=== PATIENT | male | born 1950 | race Caucasian/White ===

== ENCOUNTER 2017-07-05 13:57 | Inpatient (IN) | payer MEDICARE, OTHER ==
[2017-07-05] VITALS (12 sets, daily range): BP systolic 140–184; BP diastolic 88–115; PULSE 62–79; RESP 16–18; TEMP 97.3–98.2; O2SAT 95–97
[~2017-07-05] VITALS: Ht 175.3 cm; Wt 81.5 kg
[~2017-07-05 13:57] MED LIST: BP PILL; NAPR-571 PO; ORPH100T PO; PERC10TA27 PO
[2017-07-05] MEDS ORDERED: SODIUM CHLORIDE 0.9% FLUSH 10 ML FLUSH IVF PRN (14:15)
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
[2017-07-05] MEDS ORDERED: ASPIRIN 325 MG TAB PO ONE (14:30)
[2017-07-05] MEDS: NITROGLYCERIN 0.4 MG SL 25 TABS/BTL SL SCH ×2 (14:35→14:56)
[2017-07-05 14:56] LABS: AUTOMATED NEUTROPHIL # 3.8 TH/MM3 (1.8-7.7); BASOPHIL % 0.7 % (0.0-2.0); EOSINOPHIL # 0.1 TH/MM3 (0-0.4); EOSINOPHIL % 2.6 % (0.0-4.0); HEMATOCRIT 39.5 % (39.0-51.0); HEMOGLOBIN 13.1 GM/DL (13.0-17.0); LYMPH % 16.6 % (9.0-44.0); LYMPHOCYTE # 0.9 TH/MM3 (1.0-4.8); MEAN CORPUSCULAR HEMOGLOBIN 28.4 PG (27.0-34.0); MEAN PLATELET VOLUME 8.2 FL (7.0-11.0); MONO % 8.7 % (0.0-8.0); MONOCYTE # 0.5 TH/MM3 (0-0.9); NEUT % 71.4 % (16.0-70.0); PLATELET COUNT 145 TH/MM3 (150-450); RED BLOOD COUNT 4.59 MIL/MM3 (4.50-5.90); RED CELL DISTRIBUTION WIDTH 13.3 % (11.6-17.2); WHITE BLOOD COUNT 5.3 TH/MM3 (4.0-11.0)
--- NOTE | 2017-07-05 14:57 | RADRPT ---
EXAM DATE/TIME: 07/05/2017 14:31 [facility] COMPARISON: No previous studies available for comparison. INDICATIONS : Chest pain since yesterday. MEDICAL HISTORY : Hypertension. SURGICAL HISTORY : None. ENCOUNTER: Initial ACUITY: 2 days PAIN SCORE: 5/10 LOCATION: Bilateral chest FINDINGS: A single view of the chest demonstrates the lungs to be symmetrically aerated without evidence of mas s, infiltrate or effusion. The cardiomediastinal contours are unremarkable. Osseous structures are intact. CONCLUSION: No acute disease. Raul Mendoza MD on July 05, 2017 at 14:56 Board Certified Radiologist. This report was verified electronically.
[2017-07-05 15:06] LABS: CHLORIDE 107 MEQ/L (98-107); SODIUM (NA) 141 MEQ/L (136-145)
[2017-07-05 15:09] LABS: CALCIUM 8.5 MG/DL (8.5-10.1)
[2017-07-05 15:10] LABS: BLOOD UREA NITROGEN 26 MG/DL (7-18); GLUCOSE,RANDOM 113 MG/DL (74-106); MAGNESIUM 2.1 MG/DL (1.5-2.5)
[2017-07-05 15:13] LABS: ALT (GPT) 24 U/L (12-78); AST (GOT) 16 U/L (15-37); GLOMERULAR FILTRATION RATE 55 ML/MIN (>89)
[2017-07-05 15:14] LABS: TOTAL BILIRUBIN ADULT 0.4 MG/DL (0.2-1.0); TOTAL PROTEIN 7.6 GM/DL (6.4-8.2)
[2017-07-05 15:16] LABS: ALKALINE PHOSPHATASE 84 U/L (45-117)
[2017-07-05 15:18] LABS: D-DIMER 0.63 MG/L FEU (0.00-0.50); TROPONIN I LESS THAN 0.02 NG/ML (0.02-0.05)
[2017-07-05] MEDS ORDERED: IOHEXOL 350 MG/ML 10 ML VIAL (for RAD DIAG) IVCONTRAST ONE (16:07)
--- NOTE | 2017-07-05 16:14 | RADRPT ---
EXAM DATE/TIME: 07/05/2017 15:58 [facility] COMPARISON: CHEST SINGLE AP, July 05, 2017, 14:31. INDICATIONS : Chest pain. Evaluate for pulmonary embolism. IV CONTRAST: 65 cc Omnipaque 350 (iohexol) IV RADIATION DOSE: 15.35 CTDIvol (mGy) MEDICAL HISTORY : Hypertension. SURGICAL HISTORY : None. ENCOUNTER: Initial ACUITY: 2 days PAIN SCALE: 6/10 LOCATION: chest TECHNIQUE: Volumetric scanning of the chest was performed using a pulmonary embolism protocol MIP images were re constructed. Using automated exposure control and adjustment of the mA and/or kV according to patien t size, radiation dose was kept as low as reasonably achievable to obtain optimal diagnostic quality images. DICOM format image data is available electronically for review and comparison. Follow-up recommendations for detected pulmonary nodules are based at a minimum on nodule size and pa tient risk factors according to Fleischner Society Guidelines. FINDINGS: PULMONARY ARTERIES: No filling defects are seen in the pulmonary arteries through the segmental level. LUNGS: There is no consolidation or pneumothorax . No concerning pulmonary nodule is visualized. PLEURAE: There is no pleural thickening or pleural effusion. MEDIASTINUM: There is good visualization of the great vessels of the middle mediastinum. No evidence of mediastin al or hilar adenopathy/mass. MUSCULOSKELETAL: Within normal limits for patient age. MISCELLANEOUS: The visualized upper abdominal organs demonstrate no acute abnormality. CONCLUSION: 1. No evidence of pulmonary embolism. 2. The lungs are clear bilaterally. Rusty Zarate MD on July 05, 2017 at 16:12 Board Certified Radiologist. This report was verified electronically.
[2017-07-05] MEDS ORDERED: NITROGLYCERIN 0.4 MG SL 25 TABS/BTL SL PRN (18:00)
[2017-07-05] MEDS ORDERED: TEMAZEPAM 15 MG CAP PO PRN (18:00)
[2017-07-05] MEDS ORDERED: ACETAMINOPHEN 500 MG CPLT PO PRN (18:00)
[2017-07-05] MEDS ORDERED: SODIUM CHLORIDE 0.9% FLUSH 10 ML FLUSH IV FLUSH PRN (18:00)
[2017-07-05] MEDS ORDERED: MORPHINE SULFATE 4 MG/ML INJ IV PUSH PRN (18:00)
[2017-07-05] MEDS ORDERED: ONDANSETRON HCL 4 MG/2 ML VIAL IV PUSH PRN (18:00)
[2017-07-05] MEDS ORDERED: ACETAMINOPHEN/HYDROcodone 325 MG/7.5 MG TAB PO PRN (18:00)
--- NOTE | 2017-07-05 18:31 | HHI.HP ---
[facility] Primary Care Physician Non-Staff Admission Diagnosis chest pain Diagnoses: (1) Nonsustained ventricular tachycardia Diagnosis: Principal (2) Chest pain Diagnosis: Principal Chief Complaint: Chest discomfort Travel History International Travel<30 Days: No Contact w/Intl Traveler <30 Da: No Traveled to Known Affected Are: No History of Present Illness 66-year-old male with known history of hypertension, kidney stones, back pain who presented to hospital because of chest discomfort. Patient states that last evening before he went to bed he had 2 episodes of chest discomfort and then when he got up this morning he has had several more episodes. He states that the pain is located on the right sternal border 4/10 on a pain scale that he describes as a pressure sensation lasting for approximately 30 seconds at a time. It is nonradiating, denies any nausea, vomiting, shortness of breath, dyspnea, lightheadedness, dizziness. He states that the discomfort can happen at rest or during exertion. Patient does have significant family history of early-onset heart disease with losing a brother at age 38 and another brother at 69. Patient was resting comfortably when entering the room initially. During the interview the patient had an episode of nonsustained ventricular tachycardia with 7 beats. During that episode he did experience some tightness in his chest. Patient will need to be admitted to the hospital with cardiology consultation. Review of Systems Cardiovascular: COMPLAINS OF: Chest pain Except as stated in HPI: all other systems reviewed are Neg Past Family Social History Past Medical History Hypertension History kidney stones Back pain Past Surgical History Exploratory laparoscopies Recent lumbar spine surgery 3 months ago Reported Medications Reported Meds & Active Scripts Active Norflex (Orphenadrine Citrate) 100 Mg Theo 100 Mg PO BID Percocet 10/325 (Oxycodone/Acetaminophen) Oxycodone 10/325 Acetaminophen Tab 1 Tab PO Q4HR Reported Naproxen 250 Mg Tab 250 Mg PO Q12H [Bp Pill] DAILY Allergies: Coded Allergies: penicillin G (Unverified Allergy, Mild, 07/05/17) Family History Reviewed and is severely significant for heart disease with one brother at age 38 from heart disease and another at age 69 from heart disease Social History Patient states that he smoked briefly in his teens, he quit 19 years old. He does drink 2-3 alcoholic beverages daily. Denies any illicit drugs Physical Exam Vital Signs Vital Signs Date Time Temp Pulse Resp B/P (MAP) Pulse Ox O2 Delivery O2 Flow Rate FiO2 07/05/17 18:03 67 18 175/105 (128) 97 Room Air 07/05/17 17:57 97 21 07/05/17 15:52 76 17 140/93 (109) 97 Room Air 07/05/17 15:05 95 Room Air 07/05/17 15:05 16 07/05/17 15:03 140/93 (109) 146/88 (107) 07/05/17 15:02 79 140/93 (109) 07/05/17 14:58 16 95 Room Air 07/05/17 14:57 70 162/105 (124) 07/05/17 14:08 98.0 72 18 184/99 (127) 96 Physical Exam GENERAL: Well-developed, well-nourished, in no acute distress. alert and orientated HEENT: Head is normocephalic without any lesions or masses noted. Facial features are symmetric. Eyes: Pupils equal round reactive to light. Extraocular muscles are intact. Conjunctivae were clear. Oropharyngeal: Pharynx without any erythema edema. Tongue is midline without deviation. Buccal mucosa is moist without any masses or lesions NECK: Supple without any masses. Trachea midline no deviation. No JVD, no bruits are appreciated CARDIAC: Regular rhythm, regular rate. S1/S2 are heard. No murmurs gallops or rubs. LUNGS: Clear to auscultation bilaterally. No wheeze, rhonchi or rales. No use of accessory muscles on inspiration or expiration. ABDOMEN: Soft, nontender. Nondistended. Bowel sounds heard in all 4 quadrants. No organomegaly or masses. Negative rebound, negative guarding EXTREMITIES: No edema, pulses are equal bilaterally. No cyanosis or clubbing NEUROLOGY: Mood and affect appear appropriate. Cranial nerves II through XII grossly intact. Muscle strength 5/5 in upper and lower extremities bilaterally. Deep tendon reflexes are 2+ in upper and lower extremities bilaterally. Laboratory Laboratory Tests Test 07/05/17 14:45 White Blood Count 5.3 Red Blood Count 4.59 Hemoglobin 13.1 Hematocrit 39.5 Mean Corpuscular Volume 86.0 Mean Corpuscular Hemoglobin 28.4 Mean Corpuscular Hemoglobin Concent 33.0 Red Cell Distribution Width 13.3 Platelet Count 145 Mean Platelet Volume 8.2 Neutrophils (%) (Auto) 71.4 Lymphocytes (%) (Auto) 16.6 Monocytes (%) (Auto) 8.7 Eosinophils (%) (Auto) 2.6 Basophils (%) (Auto) 0.7 Neutrophils # (Auto) 3.8 Lymphocytes # (Auto) 0.9 Monocytes # (Auto) 0.5 Eosinophils # (Auto) 0.1 Basophils # (Auto) 0.0 CBC Comment DIFF FINAL Differential Comment Prothrombin Time 10.0 Prothromb Time International Ratio 1.0 Activated Partial Thromboplast Time 24.8 D-Dimer Quantitative (PE/DVT) 0.63 Blood Urea Nitrogen 26 Creatinine 1.30 Random Glucose 113 Total Protein 7.6 Albumin 4.0 Calcium Level 8.5 Magnesium Level 2.1 Alkaline Phosphatase 84 Aspartate Amino Transf (AST/SGOT) 16 Alanine Aminotransferase (ALT/SGPT) 24 Total Bilirubin 0.4 Sodium Level 141 Potassium Level 3.9 Chloride Level 107 Carbon Dioxide Level 27.0 Anion Gap 7 Estimat Glomerular Filtration Rate 55 Total Creatine Kinase 173 Creatine Kinase MB 2.0 Troponin I LESS THAN 0.02 Result Diagram: 07/05/17 1445 07/05/17 1445 Imaging Last Impressions Chest X-Ray 07/05/17 1413 Signed Impressions: Service Date/Time: Wednesday, July 05, 2017 14:31 - CONCLUSION: No acute disease. MD Romi Andujari VTE Risk Assessment Caprini VTE Risk Assessment: Mod/High Risk (score >= 2) Caprini Risk Assessment Model Point Value = 1 Point Value = 2 Point Value = 3 Point Value = 5 Age 41-60 Minor surgery BMI > 25 kg/m2 Swollen legs Varicose veins or History of unexplained or recurrent spontaneous Oral contraceptives or hormone replacement Sepsis (< 1 month) Serious lung disease, including pneumonia (< 1 month) Abnormal pulmonary function Acute myocardial infarction Congestive heart failure (< 1 month) History of inflammatory bowel disease Medical patient at bed rest Age 61-74 Arthroscopic surgery Major open surgery (> 45 min) Laparoscopic surgery (> 45 min) Malignancy Confined to bed (> 72 hours) Immobilizing plaster cast Central venous access Age >= 75 History of VTE Family history of VTE Factor V Leiden Prothrombin [id number] Lupus anticoagulant Anticardiolipin antibodies Elevated serum homocysteine Heparin-induced thrombocytopenia Other congenital or acquired thrombophilia Stroke (< 1 month) Elective arthroplasty Hip, pelvis, or leg fracture Acute spinal cord injury (< 1 month) Prophylaxis Regimen Total Risk Factor Score Risk Level Prophylaxis Regimen 0-1 Low Early ambulation 2 Moderate Order ONE of the following: *Sequential Compression Device (SCD) *Heparin 5000 units SQ BID 3-4 Higher Order ONE of the following medications: *Heparin 5000 units SQ TID *Enoxaparin/Lovenox 40 mg SQ daily (WT < 150 kg, CrCl > 30 mL/min) *Enoxaparin/Lovenox 30 mg SQ daily (WT < 150 kg, CrCl > 10-29 mL/min) *Enoxaparin/Lovenox 30 mg SQ BID (WT < 150 kg, CrCl > 30 mL/min) AND/OR *Sequential Compression Device (SCD) 5 or more Highest Order ONE of the following medications: *Heparin 5000 units SQ TID (Preferred with Epidurals) *Enoxaparin/Lovenox 40 mg SQ daily (WT < 150 kg, CrCl > 30 mL/min) *Enoxaparin/Lovenox 30 mg SQ daily (WT < 150 kg, CrCl > 10-29 mL/min) *Enoxaparin/Lovenox 30 mg SQ BID (WT < 150 kg, CrCl > 30 mL/min) AND *Sequential Compression Device (SCD) Assessment and Plan Assessment and Plan Chest pain with nonsustained ventricular tachycardia Patient does have increased risk factors to include age, hypertension, significant early-onset heart disease in the family Thus far cardiac enzymes are negative. We'll continue to trend cardiac enzymes EKG reviewed by myself which did show normal sinus rhythm, however when in the room patient had symptomatic nonsustained ventricular tachycardia of 7 beats Consult cardiology for recommendations, Dr. Fields recommends transferring to [facility] for cardiac catheterization Patient will be started on aspirin, beta orion, statin, Nitropaste, heparin IV Hypertension Resume losartan Hold HCTZ Back pain Pain control DVT prevention Sequential compression devices Patient will be on heparin IV Problem Qualifiers (1) Chest pain: Qualified Codes: R07.9 - Chest pain, unspecified Inocencio Wilkes Jul 05, 2017 18:31
[2017-07-05 18:44] LABS: TROPONIN I LESS THAN 0.02 NG/ML (0.02-0.05)
[2017-07-05] MEDS ORDERED: HEPARIN SODIUM - IV 10,000 UNITS/10 ML VIAL IV PUSH ONE (19:00)
[2017-07-05] MEDS ORDERED: PILL SPLITTER OTHER PRN (19:00)
[2017-07-05] MEDS ORDERED: HEPARIN-D5W 25,000 U/250 ML 250 ML IV SCH (19:00)
[2017-07-05] MEDS: METOPROLOL TARTRATE 25 MG TAB PO SCH (19:31)
[2017-07-05] MEDS: NITROGLYCERIN 2% OINT 1 GM PACKET TOPICAL SCH (19:33)
[2017-07-05] MEDS: SODIUM CHLORIDE 0.9% FLUSH 10 ML FLUSH IV FLUSH SCH (19:34)
[2017-07-05] MEDS ORDERED: ATORVASTATIN 20 MG TAB PO SCH (21:00)
[2017-07-05 22:08] LABS: TROPONIN I LESS THAN 0.02 NG/ML (0.02-0.05)
[2017-07-06] VITALS (14 sets, daily range): BP systolic 118–151; BP diastolic 78–97; PULSE 51–75; RESP 16–20; TEMP 97.8–98.1; O2SAT 94–97
[2017-07-06] MEDS ORDERED: HEPARIN SODIUM - IV 10,000 UNITS/10 ML VIAL IV PUSH PRN ×2 (00:30)
[2017-07-06] MEDS: NITROGLYCERIN 2% OINT 1 GM PACKET TOPICAL SCH ×3 (00:48→13:05)
[2017-07-06 03:35] LABS: CHOLESTEROL/ HDL RATIO 2.73 RATIO
--- NOTE | 2017-07-06 08:31 | MB ---
cc: Jodie Fields MD DATE OF CONSULT: 07/06/2017 HISTORY OF PRESENT ILLNESS: Mr. Burger is a 66-year-old white male with history of hypertension who developed substernal chest discomfort with and without exertion 2 days ago. He describes the pain as a pressure which was of moderate severity. It was in the right parasternal region. There was no radiation of the pain. The patient also had a 7-beat episode of nonsustained ventricular tachycardia. He has a strong family history of heart disease. PAST MEDICAL HISTORY: Positive for hypertension, back pain, nephrolithiasis, history of exploratory laparoscopy, lumbar spine surgery 3 months ago. MEDICATIONS: Norflex, Percocet, Naprosyn. He also takes medication for his blood pressure. ALLERGIES: PENICILLIN-G. SOCIAL HISTORY: The patient does not smoke. He drinks 2-3 drinks a day. He is , accompanied by his . FAMILY HISTORY: Strongly positive for heart disease. His brother at the age of 38 and a second brother at the age of 69 from heart disease. REVIEW OF SYSTEMS: Otherwise negative. PHYSICAL EXAMINATION: VITAL SIGNS: Blood pressure 140/88, pulse 72 and regular. HEENT: Negative. NECK: 2+ carotid upstrokes, no bruits. LUNGS: Clear. HEART: Regular with no murmur, gallop or rub. ABDOMEN: Soft, no bruits. EXTREMITIES: Without edema. 2+ distal pulses. NEUROLOGICAL: Exam is grossly nonfocal. EKG: Reviewed and showed normal sinus rhythm with normal axis and ____ . LABORATORY DATA: Hemoglobin 13.1, potassium 3.9, creatinine 1.3, troponin negative x3. CK 173, 162, 139. LDL 78, HDL 56. AST and ALT normal. DIAGNOSIS: 1. Unstable angina. 2. Nonsustained ventricular tachycardia. 3. Hypertension. 4. Strong family history of coronary artery disease. DISPOSITION: Mr. Burger will under cardiac catheterization, and coronary intervention if necessary, today. The patient and his understand the risks and benefits and wish to proceed. Will continue his current medical program including IV heparin, metoprolol, atorvastatin, aspirin and losartan. Jodie Fields MD OQ/CASTILLO , 07:53 AM , 08:29 AM
[2017-07-06] MEDS ORDERED: LOSARTAN 50 MG TAB PO SCH (09:00)
[2017-07-06] MEDS: SODIUM CHLORIDE 0.9% FLUSH 10 ML FLUSH IV FLUSH SCH ×2 (09:00→21:00)
[2017-07-06] MEDS ORDERED: ASPIRIN 325 MG TAB PO SCH (09:00)
--- NOTE | 2017-07-06 09:18 | HHI.PR ---
Subjective Remarks 66-year-old male with known history of hypertension, kidney stones, back pain who presented to hospital because of chest discomfort. Patient states that last evening before he went to bed he had 2 episodes of chest discomfort and then when he got up this morning he has had several more episodes. He states that the pain is located on the right sternal border 4/10 on a pain scale that he describes as a pressure sensation lasting for approximately 30 seconds at a time. It is nonradiating, denies any nausea, vomiting, shortness of breath, dyspnea, lightheadedness, dizziness. He states that the discomfort can happen at rest or during exertion. Patient does have significant family history of early-onset heart disease with losing a brother at age 38 and another brother at 69. Patient was resting comfortably when entering the room initially. During the interview the patient had an episode of nonsustained ventricular tachycardia with 7 beats. During that episode he did experience some tightness in his chest. Patient will need to be admitted to the hospital with cardiology consultation. 07-[address] TALBOT- TO [facility] CARDIAC CATH TODAY WAS TRANSFERRED FROM [facility] FOR EVALUATIONS DENIES ANY CHEST PAIN AT THIS TIME AWAIT CARDIAC CATH RESULTS DW RN AND PT AND FAMILY HAD CARDIAC CATH- NOT CLEARED FOR DISCHARGE UNTIL TOMORROW AM LABS Objective Vitals Vital Signs Date Time Temp Pulse Resp B/P (MAP) Pulse Ox O2 Delivery O2 Flow Rate FiO2 07/06/17 07:24 97.9 72 16 140/88 (105) 94 07/06/17 06:19 97 07/06/17 03:43 98.1 75 16 131/91 (104) 97 07/06/17 03:14 69 07/05/17 23:52 71 07/05/17 23:15 98.2 62 17 160/96 (117) 97 07/05/17 20:00 97.3 75 18 169/115 (133) 96 07/05/17 18:55 70 18 175/107 (129) 96 07/05/17 18:03 67 18 175/105 (128) 97 Room Air 07/05/17 17:57 97 21 07/05/17 15:52 76 17 140/93 (109) 97 Room Air 07/05/17 15:05 95 Room Air 07/05/17 15:05 16 07/05/17 15:03 140/93 (109) 146/88 (107) 07/05/17 15:02 79 140/93 (109) 07/05/17 14:58 16 95 Room Air 07/05/17 14:57 70 162/105 (124) 07/05/17 14:08 98.0 72 18 184/99 (127) 96 Result Diagram: 07/05/17 1445 07/05/17 1445 Other Results Laboratory Tests Test 07/05/17 14:45 07/05/17 18:15 07/05/17 21:35 07/06/17 00:40 White Blood Count 5.3 TH/MM3 Red Blood Count 4.59 MIL/MM3 Hemoglobin 13.1 GM/DL Hematocrit 39.5 % Mean Corpuscular Volume 86.0 FL Mean Corpuscular Hemoglobin 28.4 PG Mean Corpuscular Hemoglobin Concent 33.0 % Red Cell Distribution Width 13.3 % Platelet Count 145 TH/MM3 Mean Platelet Volume 8.2 FL Neutrophils (%) (Auto) 71.4 % Lymphocytes (%) (Auto) 16.6 % Monocytes (%) (Auto) 8.7 % Eosinophils (%) (Auto) 2.6 % Basophils (%) (Auto) 0.7 % Neutrophils # (Auto) 3.8 TH/MM3 Lymphocytes # (Auto) 0.9 TH/MM3 Monocytes # (Auto) 0.5 TH/MM3 Eosinophils # (Auto) 0.1 TH/MM3 Basophils # (Auto) 0.0 TH/MM3 CBC Comment DIFF FINAL Differential Comment Prothrombin Time 10.0 SEC Prothromb Time International Ratio 1.0 RATIO Activated Partial Thromboplast Time 24.8 SEC 198.4 SEC D-Dimer Quantitative (PE/DVT) 0.63 MG/L FEU Blood Urea Nitrogen 26 MG/DL Creatinine 1.30 MG/DL Random Glucose 113 MG/DL Total Protein 7.6 GM/DL Albumin 4.0 GM/DL Calcium Level 8.5 MG/DL Magnesium Level 2.1 MG/DL Alkaline Phosphatase 84 U/L Aspartate Amino Transf (AST/SGOT) 16 U/L Alanine Aminotransferase (ALT/SGPT) 24 U/L Total Bilirubin 0.4 MG/DL Sodium Level 141 MEQ/L Potassium Level 3.9 MEQ/L Chloride Level 107 MEQ/L Carbon Dioxide Level 27.0 MEQ/L Anion Gap 7 MEQ/L Estimat Glomerular Filtration Rate 55 ML/MIN Total Creatine Kinase 173 U/L 162 U/L 139 U/L Creatine Kinase MB 2.0 NG/ML 1.8 NG/ML 1.6 NG/ML Troponin I LESS THAN 0.02 NG/ML LESS THAN 0.02 NG/ML LESS THAN 0.02 NG/ML Test 07/06/17 02:53 07/06/17 06:11 Activated Partial Thromboplast Time 100.7 SEC 35.6 SEC Triglycerides Level 94 MG/DL Cholesterol Level 153 MG/DL LDL Cholesterol 78 MG/DL HDL Cholesterol 56.0 MG/DL Cholesterol/HDL Ratio 2.73 RATIO Imaging Last Impressions Chest X-Ray 07/05/17 1413 Signed Impressions: Service Date/Time: Wednesday, July 05, 2017 14:31 - CONCLUSION: No acute disease. Raul Mendoza MD CT Angiography 07/05/17 0000 Signed Impressions: Service Date/Time: Wednesday, July 05, 2017 15:58 - CONCLUSION: 1. No evidence of pulmonary embolism. 2. The lungs are clear bilaterally. Rusty Zarate MD Objective Remarks GENERAL: AWAKE ALERT AND ORIENTED X3 IN NO ACUTE DISTRESS SKIN: Warm and dry. HEAD: Atraumatic. Normocephalic. EYES: Pupils equal and round. No scleral icterus. No injection or drainage. EOMI ENT: No nasal bleeding or discharge. Mucous membranes pink and moist. TONGUE MIDLINE NECK: Trachea midline. No JVD. SUPPLE CARDIOVASCULAR: Regular rate and rhythm. S1, S2 NO S3 OR S4 RESPIRATORY: No accessory muscle use. Clear to auscultation. Breath sounds equal bilaterally. GASTROINTESTINAL: Abdomen soft, non-tender, nondistended. Hepatic and splenic margins not palpable. MUSCULOSKELETAL: Extremities without clubbing, cyanosis, or edema. No obvious deformities. NEUROLOGICAL: Awake and alert. No obvious cranial nerve deficits. Motor grossly within normal limits. Five out of 5 muscle strength in the arms and legs. Normal speech. PSYCHIATRIC: Appropriate mood and affect; insight and judgment normal. Medications and IVs Current Medications Sodium Chloride (NS Flush) 2 ml UNSCH PRN IVF FLUSH AFTER USING IV ACCESS; Start 07/05/17 at 14:15; Stop 07/05/17 at 17:58; Status DC Aspirin (Aspirin) 325 mg ONCE ONCE PO Last administered on 07/05/17at 14:55; Start 07/05/17 at 14:30; Stop 07/05/17 at 14:31; Status DC Nitroglycerin (Nitrostat Sl) 0.4 mg Q5M SL Last administered on 07/05/17at 14:56 ; Start 07/05/17 at 14:30; Stop 07/05/17 at 14:36; Status DC Iohexol (Omnipaque 350 Inj) 65 ml STK-MED ONCE IVCONTRAST Last administered on 07/05/17at 16:07; Start 07/05/17 at 16:07; Stop 07/05/17 at 16:08; Status DC Sodium Chloride (NS Flush) 2 ml UNSCH PRN IV FLUSH FLUSH AFTER USING IV ACCESS ; Start 07/05/17 at 18:00 Sodium Chloride (NS Flush) 2 ml BID IV FLUSH Last administered on 07/05/17at 19: 34; Start 07/05/17 at 21:00 Acetaminophen (Tylenol) 500 mg Q4H PRN PO HEADACHE; Start 07/05/17 at 18:00 Acetaminophen/ Hydrocodone Bitart ([place] 7.5-325 Mg) 1 tab Q4H PRN PO PAIN SCALE 6-10; Start 07/05/17 at 18:00 Morphine Sulfate (Morphine Inj) 2 mg Q4H PRN IV PUSH BREAKTHROUGH CHEST PAIN; Start 07/05/17 at 18:00 Ondansetron HCl (Zofran Inj) 4 mg Q6H PRN IV PUSH NAUSEA; Start 07/05/17 at 18: 00 Nitroglycerin (Nitrostat Sl) 0.4 mg Q5M PRN SL CHEST PAIN; Start 07/05/17 at 18 :00 Aspirin (Aspirin) 325 mg DAILY PO ; Start 07/06/17 at 09:00 Temazepam (Restoril) 15 mg HS PRN PO INSOMNIA; Start 07/05/17 at 18:00 Nitroglycerin (Nitroglycerin 2% Oint) 0.5 inch Q6HR TOPICAL Last administered on 07/06/17at 06:39; Start 07/05/17 at 19:00 Metoprolol Tartrate (Lopressor) 12.5 mg Q12HR PO Last administered on at 19:31; Start 07/05/17 at 21:00 Heparin Sodium (Porcine) (Heparin Inj) 4,000 units ONCE ONCE IV PUSH Last administered on 07/05/17at 19:33; Start 07/05/17 at 19:00; Stop 07/05/17 at 19:01 ; Status DC Heparin Sodium (Porcine) (Heparin Inj) 5,000 units UNSCH PRN IV PUSH APTT LESS THAN 25; Start 07/06/17 at 00:30 Heparin Sodium (Porcine) (Heparin Inj) 2,500 units UNSCH PRN IV PUSH APTT 25 TO 39; Start 07/06/17 at 00:30 Heparin Sodium/ Dextrose 250 ml @ 10 mls/hr TITRATE IV Last administered on at 19:42; Start 07/05/17 at 19:00 Atorvastatin Calcium (Lipitor) 20 mg HS PO Last administered on 07/05/17at 19:30 ; Start 07/05/17 at 21:00 Losartan Potassium (Cozaar) 50 mg DAILY PO ; Start 07/06/17 at 09:00 Miscellaneous (Pill Splitter) 1 ea UNSCH PRN OTHER SEE LABEL COMMENTS; Start at 19:00 A/P Problem List: (1) Nonsustained ventricular tachycardia ICD Code: I47.2 - Ventricular tachycardia (2) Chest pain ICD Code: R07.9 - Chest pain, unspecified Status: Acute Assessment and Plan Chest pain with nonsustained ventricular tachycardia Patient does have increased risk factors to include age, hypertension, significant early-onset heart disease in the family Thus far cardiac enzymes are negative. We'll continue to trend cardiac enzymes EKG reviewed by myself which did show normal sinus rhythm, however when in the room patient had symptomatic nonsustained ventricular tachycardia of 7 beats Consult cardiology for recommendations, Dr. Talbot recommends transferring to [facility] for cardiac catheterization- TO HAVE CARDIAC CATH 07-06 Patient will be started on aspirin, beta orion, statin, Nitropaste, heparin IV Hypertension Resume losartan Hold HCTZ Back pain Pain control DVT prevention Sequential compression devices Patient will be on heparin IV AWAIT CARDIAC CATH RESULTS--HAD CATH NOT CLEARED FOR DISCHARGE UNTIL TOMORROW Discharge Planning SP CATH- NOT CLEARED BY CARDIOLOGY FOR DC Problem Qualifiers (1) Chest pain: Qualified Codes: R07.9 - Chest pain, unspecified Theo Romero DO Jul 06, 2017 09:18
[2017-07-06 11:07] LABS: AUTOMATED NEUTROPHIL # 3.3 TH/MM3 (1.8-7.7); BASOPHIL # 0.1 TH/MM3 (0-0.2); BASOPHIL % 1.1 % (0.0-2.0); EOSINOPHIL # 0.1 TH/MM3 (0-0.4); EOSINOPHIL % 2.1 % (0.0-4.0); HEMATOCRIT 41.1 % (39.0-51.0); HEMOGLOBIN 13.8 GM/DL (13.0-17.0); LYMPHOCYTE # 0.8 TH/MM3 (1.0-4.8); MEAN CELL VOLUME 86.2 FL (80.0-100.0); MEAN CORPUSCULAR HGB CONC 33.6 % (32.0-36.0); MEAN PLATELET VOLUME 8.5 FL (7.0-11.0); MONO % 13.3 % (0.0-8.0); MONOCYTE # 0.7 TH/MM3 (0-0.9); NEUT % 66.5 % (16.0-70.0); PLATELET COUNT 164 TH/MM3 (150-450); RED BLOOD COUNT 4.77 MIL/MM3 (4.50-5.90); RED CELL DISTRIBUTION WIDTH 14.1 % (11.6-17.2)
[2017-07-06 11:22] LABS: ALBUMIN 3.7 GM/DL (3.4-5.0); AST (GOT) 17 U/L (15-37); BICARBONATE 26.6 MEQ/L (21.0-32.0); BLOOD UREA NITROGEN 19 MG/DL (7-18); CALCIUM 9.1 MG/DL (8.5-10.1); CHLORIDE 106 MEQ/L (98-107); CREATININE 1.01 MG/DL (0.60-1.30); GLOMERULAR FILTRATION RATE 74 ML/MIN (>89); GLUCOSE,RANDOM 93 MG/DL (74-106); MAGNESIUM 2.1 MG/DL (1.5-2.5); SODIUM (NA) 139 MEQ/L (136-145)
[2017-07-06 11:24] LABS: HEMOGLOBIN A1C 5.9 % (4.3-6.0)
[2017-07-06 11:31] LABS: ALKALINE PHOSPHATASE 86 U/L (45-117); ALT (GPT) 20 U/L (12-78); FREE T4 0.91 NG/DL (0.76-1.46); TOTAL BILIRUBIN ADULT 0.5 MG/DL (0.2-1.0); TOTAL PROTEIN 7.1 GM/DL (6.4-8.2)
[2017-07-06] MEDS: METOPROLOL TARTRATE 25 MG TAB PO SCH ×2 (11:36→19:12)
--- NOTE | 2017-07-06 12:27 | EKG ---
Date Performed: 07/05/2017 Time Performed: 18:22:37 PTAGE: 66 years EKG: Sinus rhythm NORMAL ECG PREVIOUS TRACING : 07/05/2017 14.21 Since the prior tracing, there has been no significant moody DOCTOR: Donald Sosa Interpretating Date/Time 07/06/2017 12:25:48
--- NOTE | 2017-07-06 12:27 | EKG ---
Date Performed: 07/05/2017 Time Performed: 21:29:40 PTAGE: 66 years EKG: Sinus rhythm NORMAL ECG PREVIOUS TRACING : 07/05/2017 18.22 Since the prior tracing, there has been no significant moody DOCTOR: Donald Sosa Interpretating Date/Time 07/06/2017 12:25:40
--- NOTE | 2017-07-06 12:28 | EKG ---
Date Performed: 07/05/2017 Time Performed: 14:21:08 PTAGE: 66 years EKG: Sinus rhythm NORMAL ECG NO PREVIOUS TRACING DOCTOR: Donald Sosa Interpretating Date/Time 07/06/2017 12:25:54
[2017-07-06] MEDS ORDERED: HEPARIN SODIUM - IV 10,000 UNITS/10 ML VIAL ONE (15:50)
[2017-07-06] MEDS ORDERED: HEPARIN-NS/PF FLUSH BAG 2,000 ML IV FLUSH ONE (15:50)
[2017-07-06] MEDS ORDERED: MIDAZOLAM HCL 5 MG/5 ML VIAL ONE (15:51)
[2017-07-06] MEDS ORDERED: ADENOSINE STRESS TEST INJ 90 MG/30 ML VIAL ONE (16:24)
[2017-07-06] MEDS ORDERED: SODIUM CHLOR 0.9% 1000 ML INJ 1,000 ML IV SCH (16:56)
[2017-07-06] MEDS ORDERED: MISC INFORMATION XX ONE (17:00)
--- NOTE | 2017-07-06 17:05 | CATHPROC ---
[email or web address] HIS Report Study Information Study Number Admission Scheduled Start Study Start [id number] Jul 05 2017 6:24PM 07/06/2017 Jul 06 2017 3:38PM [facility]iac Catheterization Admit Source Facility Department Emergency department [facility] - Telegraphic Service Dispatcher Physician and Clinical Staff Initial Jodie Mcclendon Account Strategist Marian Menendez,GIANFRANCO Other Manoj Perez,RT(R) Recorder Kristan Grove,COMPONENT LAB TECH TECH2 Scrub Riri Kelley,RT(R) (BS) Procedures Performed Procedure Location (Site) Vessel Name Angiogram LV LV Ventricle Coronary Angiograms LCA Left Coronary Coronary Angiograms RCA Right Coronary Wire insertion Fem Art (right) Femoral Art Equipment Time Tapper Shank Description Size Mfg Part Number Used/Scraped TRANSDUCER, TRFUADAVE [id number] 15:39 [employer] * Used W/STOCKCOCK *[id number] 16:42 [facility] VASCADE, FR5 CLOSURE SYSTEM FR 5 Used *[id number] *[id number] 15:39 [employer] INDUSTRIES PACK, CCL CUSTOM * Used *[id number] 15:39 [employer] PACER PEN, SKIN DUAL W/ RULER * Used *[id number] 16:06 [employer] AR MOD DXTERITY CATHETER FR 5 [id number] Used PIG ANG 145 DXTERITY 16:08 [employer] FR 5 [id number] Used CATHETER [id number] 15:39 [employer] MEDICAL WIRE, 3MMJ .035 180CM 180CM Used *[id number] PROBE COVER, STERILE [id number] 15:39 [employer] * Used ULTRASOUND W/ GEL *[id number] 15:39 NAMIC MANIFOLD, 4 PORT * Used *[id number] 15:39 NAMIC TUBING, HIGH PRESSURE 48" 48" Used *[id number] 15:39 [employer] OMNIPAQUE, 350 MG, 150ML 150ML [id number] Used 16:08 [employer] OMNIPAQUE, 350 MG, 50ML 50ML [id number] Used [id number] 15:39 [employer] BLANKET,WARM AIR CCL * Used *[id number] 15:39 [employer]UMO MEDICAL SHEATH, FR5 TERUMO (10CM) FR 5 Used *[id number] 16:33 [employer] PRIME WIRE, VERRATA 185CM 185CM [id number] *[id number] Used Equipment Model, Serial, Lot Number and Expiration Data Description Model Number Serial Number Lot Number Expiration Date AR MOD DXTERITY CATHETER [id number] 09-04-2019 History: Allergies Allergy Reaction penicillin G History: Risk Factors Family History of Hypertension Dyslipidemia Previous VT Previous Heart Failure Premature CAD Yes No Yes No No Prior Valve Prior PCI Prior CABG Surgery No No No Cerebrovascular Peripheral Artery Chronic Lung On Dialysis Diabetes Disease Disease Disease No No No No No History: Symptoms/Diagnosis Selection Items Chest pain History: Arrhythmias Selection Items Non-sustained VT History: Other Current Smoker Method Quit Packs a Day Years Used Pack Years No Cigarettes 40 Years Ago 1 8 8 Labs Hgb (g/dl) Hct (%) WBC (l/cumm) Platelets (thousands) 11.60-17.00 35.00-51.00 4.00-11.00 150.00-450.00 13.1 39.5 5.3 145 Glucose (mg/dl) BUN (mg/dl) Creatinine (mg/dl) BUN:Creatinine (1:x) 74.00-106.00 7.00-18.00 0.50-1.30 10.00-20.00 113 26 1.3 20 Na (meq/l) K (meq/l) Cl (meq/l) CO2 (mmol/L) Ca (mg/dl) 136.00-145.00 3.50-5.10 98.00-107.00 21.00-32.00 8.50-10.10 141 3.9 107 27 8.5 PT (sec) PTT (sec) INR (PTT:PT) 9.80-11.60 24.30-30.10 0.90-1.10 10 50.6 1 Troponin I (ng/ml) CPK (u/l) CPK-MB (ng/ML) 0.02-0.05 26.00-308.00 0.50-3.60 0.02 139 1.6 Medication Medication Total Dose (Bolus/Oral) Medication Total Dosage/Unit 1% XYLOCAINE 20 mL FENTANYL 100 mcg OXYGEN 2 l/min VERSED 5 mg Medications (Bolus/Oral) Medication Time Given Dosage/Unit Administered By Reason VERSED 07/06/2017 4:00:32 PM 2 mg Marian Menendez 2 mg VERSED given in lab by Marian Menendez RN in Right Antecubital via Peripheral IV. Ordered by Jodie Juárez. FENTANYL 07/06/2017 4:01:57 PM 50 mcg Hesher, Marian 50 mcg FENTANYL given in lab by Marian Menendez RN in Right Antecubital via Peripheral IV. Ordered by Jodie Fields. VERSED 07/06/2017 4:04:40 PM 1 mg Hesher, Marian 1 mg VERSED given in lab by Marian Menendez RN in Right Antecubital via Peripheral IV. Ordered by Jodie Juárez. 1% XYLOCAINE 07/06/2017 4:05:06 PM 20 mL Patient arrived on 20 mL 1% XYLOCAINE via Subcutaneous. FENTANYL 07/06/2017 4:05:20 PM 25 mcg Hesher, Marian 25 mcg FENTANYL given in lab by Marian Menendez RN in Right Antecubital via Peripheral IV. Ordered by Jodie Fields. OXYGEN 07/06/2017 4:06:59 PM 2 l/min Gemma, Marian 2 l/min OXYGEN given in lab by Marian Menendez RN via Nasal. VERSED 07/06/2017 4:18:17 PM 2 mg Hesher, Marian 2 mg VERSED given in lab by Marian Menendez RN in Right Antecubital via Peripheral IV. Ordered by Jodie Juárez. FENTANYL 07/06/2017 4:19:54 PM 25 mcg Hesher, Marian 25 mcg FENTANYL given in lab by Marian Menendez RN in Right Antecubital via Peripheral IV. Ordered by Jodie Fields. Medication (Drip) Medication Time Given Dosage/Unit Concentration/Unit Diluent (ml) Solutio n ADENOSINE DRIP 07/06/2017 4:37:09 PM 139.87 mcg/kg/min 90 mg 90 NaCl .9 139.87 mcg/kg/min ADENOSINE DRIP starteded in lab by Marian Menendez RN in Right Antecubital via [place] pheral IV. Pump/Drip Flow = 689 ml/hr using NaCl .9 with a concentration of 90 mg in 90 ml. Ordered by Jodie Fields. Discontinued at 06/10 16:40. ADENOSINE DRIP 07/06/2017 4:40:56 PM 139.87 mcg/kg/min 90 mg 90 NaCl .9 139.87 mcg/kg/min ADENOSINE DRIP discontinued in lab by Marian Menendez, GIANFRANCO in Right Antecubital via P eripheral IV. Pump/Drip Flow = 689 ml/hr using NaCl .9 with a concentration of 90 mg in 90 ml. Ordered by Jodie Fields. Discontinued at 06/10 16:41. IV Solutions 07/06/2017 3:56:24 PM 0 mL (IV) 500 NaCl .9 Patient arrived on IV Solutions in Right Antecubital via Peripheral IV. Pump/Drip Flow = 20 ml/hr usi ng NaCl .9. Initial Case Assessment Cardiovascular HR Rhythm NIBP Chest Pain 65 sr 178/101 0 Circulatory - Right Pulses Dorsalis Pedis Femoral 2 1 Scale (0,1,2,3,4,d) Circulatory - Left Pulses Dorsalis Pedis Femoral 2 1 Scale (0,1,2,3,4,d) Neurological State Oriented to time-place- Alert Moves all extremities person Respiration - General Respiration Rate SpO2 (%) (B/min) 10 95 Final Case Assessment Cardiovascular HR Rhythm NIBP Chest Pain 61 sr 142/96 0 Neurological State Oriented to time-place- Alert Moves all extremities person Respiration - General Respiration Rate SpO2 (%) (B/min) 13 98 Chronological Log Time Study Chronological Log 15:31:00 heparin drip dc'd 15:44:23 Patient arrived via Bed. 15:44:24 Patient Name, D.O.B, / Armband Verified By R.N. 15:44:25 Consent signed by the physician and the patient and verified by the Telegraphic Service Dispatcher staff. 15:44:26 Pre-op and post- op instructions given; patient acknowledges understanding of instructions. 15:44:27 Verbal Stimulation=2 Physical Stimulation=2 Airway=2 Respiration=2 TOTAL=8. (0=absent, 1=li mited, 2=present) 15:44:29 Presedation assessment performed by Telegraphic Service Dispatcher RN. 15:44:30 Patient has been NPO for More than 6Hrs. 15:44:31 Skin Breakdown-none 15:44:32 Abena Prominences Protected Vitals capture started with the following parameters, Patient=Adult, Interval=5 min, Initial Pr ektski=439 mmHg, 15:49:02 Deflation Rate=5 mmHg, Cuff placed on Left Arm 15:49:15 Reference ECG taken 15:49:18 A # 20 IV was noted in the Antecubital (right). Grade = patent 15:49:23 History and physical on the chart or being dictated. Assessment: Initial Case, HR=65 BPM, Rhythm=sr, FGEL=210/101 mmhg, Chest Pain=0 Right Pulses: Tiburcio Ped=2, Femoral=1 15:49:24 Left Pulses: Tiburcio Ped=2, Femoral=1 Neurological: State=Alert, Ox3, BENNETT Respiration: Resp=10 B/min, SpO2=95 % 15:50:18 HR=61 bpm, XTDP=675/101 mmhg, SpO2=94.0 %, Resp=15 B/min 15:54:43 HR=69 bpm, ITYT=036/106 mmhg, SpO2=95.0 %, Resp=10 B/min, Pain=0, Ronald=10, Ruano=2 15:56:24 Patient arrived on IV Solutions in Right Antecubital via Peripheral IV. Pump/Drip Flow = 20 ml/hr using NaCl .9. 15:59:40 HR=72 bpm, PVUI=915/103 mmhg, SpO2=91.0 %, Resp=22 B/min 16:00:32 2 mg VERSED given in lab by Marian Menendez RN in Right Antecubital via Peripheral IV. Orde red by Jodie Fields. 16:00:35 MD arrived. 50 mcg FENTANYL given in lab by Marian Menendez RN in Right Antecubital via Peripheral IV. Orde red by Diamond, 16:01:57 Jodie. Time Out. Correct patient, correct procedure, correct physician, power injector loaded, or not loaded with contrast with 16:04:39 surgical team present. Time Out Concurred by MD and individual staff in procedure. 16:04:40 1 mg VERSED given in lab by Marian Menendez RN in Right Antecubital via Peripheral IV. Orde red by Jodie Fields. 16:04:41 HR=63 bpm, HMQR=733/71 mmhg, SpO2=83.0 %, Resp=18 B/min 16:05:01 Pressure channel 1 zeroed. 16:05:06 Patient arrived on 20 mL 1% XYLOCAINE via Subcutaneous. 16:05:15 Case Start 25 mcg FENTANYL given in lab by Marian Menendez, RN in Right Antecubital via Peripheral IV. Orde red by Diamond, 16:05:20 Jodie. 16:06:23 Access site was Right Femoral Artery. 16:06:33 A SHEATH, FR5 TERUMO (10CM) FR 5 was advanced into the Fem Art (right) using the Percutaneo us technique. 16:06:44 Activated Clotting Time Drawn 16:06:59 2 l/min OXYGEN given in lab by Marian Menendez RN via Nasal. A PIG ANG 145 DXTERITY CATHETER FR 5 was advanced over a wire. OMNIPAQUE, 350 MG, 50ML 50ML was used for 16:07:35 injections. 16:09:29 HR=63 bpm, XJQZ=545/76 mmhg, SpO2=96.0 %, Resp=9 B/min 16:09:59 The LV was injected at 10 cc/sec for a total of 30. OMNIPAQUE, 350 MG, 50ML 50ML used. Recorded Pressure: LV, HR=62, Condition=Condition 1 16:10:06 (Left Ventricle) LV 131/11/18 Recorded Pressure: LV, Ao, HR=62, Condition=Condition 1 16:10:23 (Left Ventricle) LV 129/9/19, (Aorta) Ao 124/78/99 16:10:29 Catheter was removed A JL 4.0 INFINITI CATHETER FR 5 was advanced over a wire. OMNIPAQUE, 350 MG, 150ML 150ML was us ed for 16:10:55 injections. 16:12:25 ACT (Normal Range 90-180) = 179 16:12:26 The LCA was injected and visualized at various angles. OMNIPAQUE, 350 MG, 150ML 150ML used . 16:14:38 Catheter was removed A AR MOD DXTERITY CATHETER FR 5 was advanced over a wire. OMNIPAQUE, 350 MG, 150ML 150ML was us ed for 16:14:54 injections. 16:15:07 HR=63 bpm, KZBS=435/86 mmhg, SpO2=96.0 %, Resp=18 B/min 16:16:58 The RCA was injected and visualized at various angles. OMNIPAQUE, 350 MG, 150ML 150ML used . 16:17:10 Catheter was removed 16:18:17 2 mg VERSED given in lab by Marian Menendez RN in Right Antecubital via Peripheral IV. Orde red by Jodie Fields. 16:19:34 HR=62 bpm, CXPR=187/86 mmhg, SpO2=95.0 %, Resp=20 B/min 25 mcg FENTANYL given in lab by Marian Menendez, RN in Right Antecubital via Peripheral IV. Orde red by Diamond, 16:19:54 Jodie. 16:24:41 HR=65 bpm, PBWB=986/66 mmhg, SpO2=94.0 %, Resp=16 B/min A JL 4.0 INFINITI CATHETER FR 5 was advanced over a wire. OMNIPAQUE, 350 MG, 150ML 150ML was us ed for 16:27:12 injections. 16:29:34 HR=58 bpm, NIBP=96/60 mmhg, SpO2=97.0 %, Resp=16 B/min 16:30:40 Pressure channel 1 zeroed. 16:32:17 The LCA was injected and visualized at various angles. OMNIPAQUE, 350 MG, 150ML 150ML used . 16:32:31 A PRIME WIRE, VERRATA 185CM 185CM was inserted via Fem Art (right). 16:34:33 HR=59 bpm, NIBP=92/56 mmhg, Resp=17 B/min 139.87 mcg/kg/min ADENOSINE DRIP starteded in lab by Marian Menendez RN in Right Antecubital vi a Peripheral IV. 16:37:09 Pump/Drip Flow = 689 ml/hr using NaCl .9 with a concentration of 90 mg in 90 ml. Ordered by Jodie Fields. Discontinued at 07/06/2017 16:40. 16:39:32 HR=74 bpm, NOZF=584/64 mmhg, SpO2=95.0 %, Resp=19 B/min 16:39:49 Flow Wire was was placed in the LAD Mid. The FFR measures 0.92 percent. The IFR measures 0. 96 Percent. 139.87 mcg/kg/min ADENOSINE DRIP discontinued in lab by Marian Menendez RN in Right Antecubital via Peripheral IV. 16:40:56 Pump/Drip Flow = 689 ml/hr using NaCl .9 with a concentration of 90 mg in 90 ml. Ordered by Jodie Fields. Discontinued at 07/06/2017 16:41. 16:41:38 The PRIME WIRE, VERRATA 185CM 185CM was removed. 16:41:55 Catheter was removed 16:42:00 Case End Recorded Pressure: AoP, HR=72, Condition=Condition 1 16:42:19 (AO post) AoP 108/73/87 16:43:00 An injection in the Fem Art (right) was made through the SHEATH, FR5 TERUMO (10CM) FR 5. 16:45:04 HR=68 bpm, KNAK=156/91 mmhg, SpO2=96.0 %, Resp=11 B/min, Pain=0, Ronald=10 16:45:26 Site cleaned with betadine. 16:45:37 VASCADE, FR5 CLOSURE SYSTEM FR 5 placement in the Fem Art (right) Manual pressure held 16:50:13 HR=68 bpm, BYHM=521/106 mmhg, SpO2=97.0 %, Resp=13 B/min, Pain=0, Ronald=8 16:54:43 HR=67 bpm, GZJQ=179/96 mmhg, SpO2=96.0 %, Resp=15 B/min, Ronald=10 Assessment: Final Case, HR=61 BPM, Rhythm=sr, ITEA=912/96 mmhg, Chest Pain=0 16:55:58 Neurological: State=Alert, Ox3, BENNETT Respiration: Resp=13 B/min, SpO2=98 % 16:58:23 Hemostasis obtained. 16:59:19 Sterile dressing applied to site 16:59:40 HR=61 bpm, VCUD=715/96 mmhg, SpO2=99.0 %, Resp=14 B/min 17:01:32 No case complications noted. 17:01:33 Cine recording checked. 17:01:35 Bedside Report will be given. 17:01:43 Patient moved to bed 17:04:06 Patient transported to DOCU. 17:04:21 Vitals capture stopped. End Study - Contrast Media Used In Study Contrast Total Opened (mL) Total Used (mL) Total Wasted (mL) Omnipaque 100 100 0 End Study - Maximum Contrast Load Max Contrast Load (mL) 315.7 End Study - Radiation Exposure Fluoro Time (minutes) 4.1 End Study - Sheaths Sheaths Pulled By Sheath Hold Time (min) Riri Kelley End Study - Patient Disposition Complications Transferred To Interventional Outcome No Telemetry Bed No attempt made
[2017-07-06] MEDS ORDERED: CLOPIDOGREL 300 MG TAB PO ONE (17:45)
[2017-07-06] MEDS: ASPIRIN 81 MG CHEW TAB PO SCH (18:32)
[2017-07-06] MEDS ORDERED: TAMS5CAP PO (18:35)
[2017-07-06] MEDS ORDERED: ATORVASTATIN 80 MG TAB PO SCH (21:00)
[2017-07-07] VITALS (16 sets, daily range): BP systolic 111–141; BP diastolic 83–92; PULSE 56–68; RESP 20; TEMP 97.8–98.7; O2SAT 93–95
[2017-07-07] MEDS ORDERED: ISOSORBIDE MONONITRATE 30 MG CR TAB (IMDUR) PO SCH (07:00)
[2017-07-07 08:02] LABS: AUTOMATED NEUTROPHIL # 3.5 TH/MM3 (1.8-7.7); BASOPHIL % 0.8 % (0.0-2.0); EOSINOPHIL # 0.1 TH/MM3 (0-0.4); EOSINOPHIL % 2.2 % (0.0-4.0); HEMATOCRIT 39.3 % (39.0-51.0); HEMOGLOBIN 13.3 GM/DL (13.0-17.0); LYMPH % 18.3 % (9.0-44.0); MEAN CELL VOLUME 86.4 FL (80.0-100.0); MEAN CORPUSCULAR HEMOGLOBIN 29.2 PG (27.0-34.0); MEAN CORPUSCULAR HGB CONC 33.8 % (32.0-36.0); MEAN PLATELET VOLUME 8.3 FL (7.0-11.0); MONO % 13.5 % (0.0-8.0); MONOCYTE # 0.7 TH/MM3 (0-0.9); NEUT % 65.2 % (16.0-70.0); PLATELET COUNT 171 TH/MM3 (150-450); RED BLOOD COUNT 4.55 MIL/MM3 (4.50-5.90); RED CELL DISTRIBUTION WIDTH 14.1 % (11.6-17.2); WHITE BLOOD COUNT 5.4 TH/MM3 (4.0-11.0)
[2017-07-07 08:15] LABS: ALBUMIN 3.5 GM/DL (3.4-5.0); ALT (GPT) 21 U/L (12-78); AST (GOT) 16 U/L (15-37); BICARBONATE 27.6 MEQ/L (21.0-32.0); BLOOD UREA NITROGEN 17 MG/DL (7-18); CALCIUM 8.7 MG/DL (8.5-10.1); CHLORIDE 108 MEQ/L (98-107); CHOLESTEROL 135 MG/DL (120-200); CREATININE 1.04 MG/DL (0.60-1.30); GLOMERULAR FILTRATION RATE 72 ML/MIN (>89); GLUCOSE,RANDOM 97 MG/DL (74-106); SODIUM (NA) 141 MEQ/L (136-145)
[2017-07-07 08:18] LABS: ALKALINE PHOSPHATASE 80 U/L (45-117); CHOLESTEROL/ HDL RATIO 2.87 RATIO; FREE T4 0.87 NG/DL (0.76-1.46); LDL CHOLESTEROL 67 MG/DL (0-99); PHOSPHORUS 2.3 MG/DL (2.5-4.9); TOTAL BILIRUBIN ADULT 0.4 MG/DL (0.2-1.0); TOTAL PROTEIN 6.7 GM/DL (6.4-8.2); TRIGLYCERIDES 107 MG/DL (42-150)
--- NOTE | 2017-07-07 08:32 | PD.CARD.PN ---
Subjective Subjective Remarks No CP or SOB, feels fine Objective Medications Current Medications Medications (Trade) Dose Ordered Sig/Jose Antonio Route Start Time Stop Time Status Last Admin (NS Flush) 2 ml UNSCH PRN IV FLUSH 07/05/17 18:00 (NS Flush) 2 ml BID IV FLUSH 07/05/17 21:00 07/06/17 21:00 (Tylenol) 500 mg Q4H PRN PO 07/05/17 18:00 ([place] 7.5-325 Mg) 1 tab Q4H PRN PO 07/05/17 18:00 (Morphine Inj) 2 mg Q4H PRN IV PUSH 07/05/17 18:00 (Zofran Inj) 4 mg Q6H PRN IV PUSH 07/05/17 18:00 (Nitrostat Sl) 0.4 mg Q5M PRN SL 07/05/17 18:00 (Restoril) 15 mg HS PRN PO 07/05/17 18:00 (Pill Splitter) 1 ea UNSCH PRN OTHER 07/05/17 19:00 (Aspirin Chew) 81 mg DAILY PO 07/06/17 17:00 07/06/17 18:32 (Plavix) 75 mg DAILY PO 07/07/17 09:00 (Lopressor) 25 mg BID PO 07/06/17 21:00 07/06/17 19:12 (Lipitor) 80 mg HS PO 07/06/17 21:00 07/06/17 21:24 (Cozaar) 25 mg DAILY PO 07/07/17 09:00 (Imdur) 30 mg DAILY@07 PO 07/07/17 07:00 07/07/17 06:13 Vital Signs / I&O Vital Signs Date Time Temp Pulse Resp B/P (MAP) Pulse Ox O2 Delivery O2 Flow Rate FiO2 07/07/17 07:30 98.7 62 20 141/92 (108) 94 07/07/17 07:00 66 07/07/17 06:26 68 07/07/17 05:02 60 07/07/17 04:16 64 07/07/17 04:16 98.0 68 137/83 (101) 95 07/07/17 03:24 63 07/07/17 02:14 62 07/07/17 01:00 56 07/07/17 00:31 97.8 62 111/85 (94) 94 07/07/17 00:00 66 07/06/17 23:18 66 07/06/17 22:00 56 07/06/17 21:00 62 07/06/17 20:00 60 07/06/17 20:00 97.8 62 120/78 (92) 94 07/06/17 19:00 62 07/06/17 18:27 98.0 60 18 151/97 (115) 97 07/06/17 18:23 51 07/06/17 15:29 98.1 63 20 118/83 (95) 95 07/06/17 11:08 98.1 70 18 140/94 (109) 97 I/O 07/06/17 07/06/17 07/06/17 07/07/17 07/07/17 07/07/17 07:00 15:00 23:00 07:00 15:00 23:00 Intake Total 120 ml 240 ml Output Total 500 ml Balance 120 ml -260 ml Intake Oral 120 ml 240 ml Output Urine Total 500 ml # Voids 1 # Bowel Movements 0 Physical Exam GENERAL: In NAD SKIN: Warm and dry. HEAD: Normocephalic. EYES: No scleral icterus. No injection or drainage. NECK: Supple, trachea midline. No JVD or lymphadenopathy. CARDIOVASCULAR: Regular rate and rhythm without murmurs, gallops, or rubs. RESPIRATORY: Breath sounds equal bilaterally. No accessory muscle use. GASTROINTESTINAL: Abdomen soft, non-tender, nondistended. MUSCULOSKELETAL: No cyanosis, or edema. Groin stable Laboratory Laboratory Tests Test 07/06/17 10:00 07/06/17 12:33 07/06/17 19:31 07/07/17 06:57 White Blood Count 5.0 TH/MM3 5.4 TH/MM3 Red Blood Count 4.77 MIL/MM3 4.55 MIL/MM3 Hemoglobin 13.8 GM/DL 13.3 GM/DL Hematocrit 41.1 % 39.3 % Mean Corpuscular Volume 86.2 FL 86.4 FL Mean Corpuscular Hemoglobin 29.0 PG 29.2 PG Mean Corpuscular Hemoglobin Concent 33.6 % 33.8 % Red Cell Distribution Width 14.1 % 14.1 % Platelet Count 164 TH/MM3 171 TH/MM3 Mean Platelet Volume 8.5 FL 8.3 FL Neutrophils (%) (Auto) 66.5 % 65.2 % Lymphocytes (%) (Auto) 17.0 % 18.3 % Monocytes (%) (Auto) 13.3 % 13.5 % Eosinophils (%) (Auto) 2.1 % 2.2 % Basophils (%) (Auto) 1.1 % 0.8 % Neutrophils # (Auto) 3.3 TH/MM3 3.5 TH/MM3 Lymphocytes # (Auto) 0.8 TH/MM3 1.0 TH/MM3 Monocytes # (Auto) 0.7 TH/MM3 0.7 TH/MM3 Eosinophils # (Auto) 0.1 TH/MM3 0.1 TH/MM3 Basophils # (Auto) 0.1 TH/MM3 0.0 TH/MM3 CBC Comment DIFF FINAL DIFF FINAL Differential Comment Blood Urea Nitrogen 19 MG/DL 17 MG/DL Creatinine 1.01 MG/DL 1.04 MG/DL Random Glucose 93 MG/DL 97 MG/DL Total Protein 7.1 GM/DL 6.7 GM/DL Albumin 3.7 GM/DL 3.5 GM/DL Calcium Level 9.1 MG/DL 8.7 MG/DL Phosphorus Level 2.0 MG/DL 2.3 MG/DL Magnesium Level 2.1 MG/DL 2.0 MG/DL Alkaline Phosphatase 86 U/L 80 U/L Aspartate Amino Transf (AST/SGOT) 17 U/L 16 U/L Alanine Aminotransferase (ALT/SGPT) 20 U/L 21 U/L Total Bilirubin 0.5 MG/DL 0.4 MG/DL Sodium Level 139 MEQ/L 141 MEQ/L Potassium Level 4.1 MEQ/L 3.9 MEQ/L Chloride Level 106 MEQ/L 108 MEQ/L Carbon Dioxide Level 26.6 MEQ/L 27.6 MEQ/L Anion Gap 6 MEQ/L 5 MEQ/L Estimat Glomerular Filtration Rate 74 ML/MIN 72 ML/MIN Hemoglobin A1c 5.9 % Free Thyroxine 0.91 NG/DL 0.87 NG/DL Thyroid Stimulating Hormone 3rd Gen 1.410 uIU/ML Activated Partial Thromboplast Time 50.6 SEC 25.4 SEC Triglycerides Level 107 MG/DL Cholesterol Level 135 MG/DL LDL Cholesterol 67 MG/DL HDL Cholesterol 47.0 MG/DL Cholesterol/HDL Ratio 2.87 RATIO Assessment and Plan Problem List: (1) Angina pectoris ICD Codes: I20.9 - Angina pectoris, unspecified (2) CAD (coronary artery disease) ICD Codes: I25.10 - Atherosclerotic heart disease of [place] coronary artery without angina pectoris (3) Nonsustained ventricular tachycardia ICD Codes: I47.2 - Ventricular tachycardia Assessment and Plan No recurrent angina. Tele with no significant arrhythmias. Cath w nl LV fx and 60% LAD with negative FFR. Continue Plavix, baby ASA, beta orion, high dose statin. DC home. F/u with his physicians in [place] next week. Jodie Fields MD Jul 07, 2017 08:32
[2017-07-07] MEDS ORDERED: CLOPIDOGREL 75 MG TAB PO SCH (09:00)
[2017-07-07] MEDS ORDERED: LOSARTAN 25 MG TAB PO SCH (09:00)
[2017-07-07] MEDS: SODIUM CHLORIDE 0.9% FLUSH 10 ML FLUSH IV FLUSH SCH (09:39)
[2017-07-07] MEDS: METOPROLOL TARTRATE 25 MG TAB PO SCH (09:39)
[2017-07-07] MEDS: ASPIRIN 81 MG CHEW TAB PO SCH (09:39)
--- NOTE | 2017-07-07 10:00 | MR ---
cc: Jodie Fields MD 07/06/2017 INDICATION: Unstable angina, class III angina. PROCEDURES PERFORMED: 1. Retrograde heart catheterization with left scintigraphy and selective angiography. 2. Fractional flow reserve (FFR and iIFR determination of the moderate stenosis of mid left anterior descending artery. 3. Moderate sedation. ACCESS SITE: Right femoral artery. EQUIPMENT USED: A 5-[place] pigtail catheter, 5-[place] JL4 and AR modified coronary artery catheters. MEDICATIONS: Versed intravenous, Fentanyl intravenous, heparin intravenous drip, adenosine intravenous for FFR determination. CONTRAST: Omnipaque 100 milliliters. COMPLICATIONS: None. ESTIMATED BLOOD LOSS: Less than 10 milliliters. METHOD OF HEMOSTASIS: [place] closure. RESULTS A. HEMODYNAMICS Heart rate 62 beats/minute. Left ventricular end diastolic pressure 9 mmHg Left ventricle 125/9 Aorta Ejection fraction 129/78/99 B. LEFT VENTRICULOGRAPHY Ejection fraction 55 Wall motion normal. No mitral regurgitation. C. CORONARY ANGIOGRAPHY The left main coronary artery is patent. The left ascending artery had 60% stenosis in the mid portion. FFR 0.92, iFR 0.96 (both normal). D1 patent, D2 patent. The left circumflex artery is a large vessel, it's patent. OM1 patent, OM2 patent. The right coronary artery is a dominant vessel, which is patent. PDA patent, PLV patent. DIAGNOSIS: 1. Moderate nonobstructive coronary artery disease, with 60% stenosis of the mid left anterior descending artery. 2. Preserved left ventricular systolic function. DISPOSITION: Mr. Alarcon found to have no evidence of significant obstructive coronary artery disease. Will continue therapy for angina, antiplatelet therapy and aggressive progression of his cardiac risk factors. He will follow up with his physicians at home after discharge. MD GAURAV Segovia/LUCIANA , 04:53 PM , 05:31 PM
[2017-07-07] MEDS ORDERED: ISOS30TA3 PO (10:34)
[2017-07-07] MEDS ORDERED: PLAV75TA29 PO (10:34)
[2017-07-07] MEDS ORDERED: ATOR80TA45 PO (10:34)
[2017-07-07] MEDS ORDERED: METO25TA3 PO (10:34)
[2017-07-07] MEDS ORDERED: ASPI81 PO (10:34)
[2017-07-07] MEDS ORDERED: COZA25TA PO (10:34)
--- NOTE | 2017-07-07 10:56 | HHI.DS ---
Discharge Summary Admission Date Jul 05, 2017 at 18:24 Discharge Date: Jul 07, 2017 Admitting Diagnosis chest pain (1) Nonsustained ventricular tachycardia ICD Code: I47.2 - Ventricular tachycardia Diagnosis: Principal (2) Chest pain ICD Code: R07.9 - Chest pain, unspecified Diagnosis: Principal Status: Acute Procedures Cardiac catheterization. Please see report. Brief History - From Admission 66-year-old male with known history of hypertension, kidney stones, back pain who presented to hospital because of chest discomfort. Patient states that last evening before he went to bed he had 2 episodes of chest discomfort and then when he got up this morning he has had several more episodes. He states that the pain is located on the right sternal border 4/10 on a pain scale that he describes as a pressure sensation lasting for approximately 30 seconds at a time. It is nonradiating, denies any nausea, vomiting, shortness of breath, dyspnea, lightheadedness, dizziness. He states that the discomfort can happen at rest or during exertion. Patient does have significant family history of early-onset heart disease with losing a brother at age 38 and another brother at 69. Patient was resting comfortably when entering the room initially. During the interview the patient had an episode of nonsustained ventricular tachycardia with 7 beats. During that episode he did experience some tightness in his chest. Patient will need to be admitted to the hospital with cardiology consultation. CBC/BMP: 07/07/17 0657 07/07/17 0657 Significant Findings Laboratory Tests Test 07/05/17 14:45 07/05/17 18:15 07/05/17 21:35 07/06/17 00:40 Platelet Count 145 TH/MM3 (150-450) Neutrophils (%) (Auto) 71.4 % (16.0-70.0) Monocytes (%) (Auto) 8.7 % (0.0-8.0) Lymphocytes # (Auto) 0.9 TH/MM3 (1.0-4.8) D-Dimer Quantitative (PE/DVT) 0.63 MG/L FEU (0.00-0.50) Blood Urea Nitrogen 26 MG/DL (7-18) Random Glucose 113 MG/DL (74-106) Estimat Glomerular Filtration Rate 55 ML/MIN (>89) Troponin I LESS THAN 0.02 NG/ML LESS THAN 0.02 NG/ML LESS THAN 0.02 NG/ML Activated Partial Thromboplast Time 198.4 SEC (24.3-30.1) Test 07/06/17 02:53 07/06/17 06:11 07/06/17 10:00 07/06/17 12:33 Activated Partial Thromboplast Time 100.7 SEC (24.3-30.1) 35.6 SEC (24.3-30.1) 50.6 SEC (24.3-30.1) Monocytes (%) (Auto) 13.3 % (0.0-8.0) Lymphocytes # (Auto) 0.8 TH/MM3 (1.0-4.8) Blood Urea Nitrogen 19 MG/DL (7-18) Phosphorus Level 2.0 MG/DL (2.5-4.9) Estimat Glomerular Filtration Rate 74 ML/MIN (>89) Test 07/06/17 19:31 07/07/17 06:57 Monocytes (%) (Auto) 13.5 % (0.0-8.0) Phosphorus Level 2.3 MG/DL (2.5-4.9) Chloride Level 108 MEQ/L (98-107) Estimat Glomerular Filtration Rate 72 ML/MIN (>89) Imaging Last Impressions Chest X-Ray 07/05/17 1413 Signed Impressions: Service Date/Time: Wednesday, July 05, 2017 14:31 - CONCLUSION: No acute disease. Raul Mendoza MD CT Angiography 07/05/17 0000 Signed Impressions: Service Date/Time: Wednesday, July 05, 2017 15:58 - CONCLUSION: 1. No evidence of pulmonary embolism. 2. The lungs are clear bilaterally. Rusty Zarate MD PE at Discharge GENERAL: AWAKE ALERT AND ORIENTED X3 IN NO ACUTE DISTRESS SKIN: Warm and dry. HEAD: Atraumatic. Normocephalic. EYES: Pupils equal and round. No scleral icterus. No injection or drainage. EOMI ENT: No nasal bleeding or discharge. Mucous membranes pink and moist. TONGUE MIDLINE NECK: Trachea midline. No JVD. SUPPLE CARDIOVASCULAR: Regular rate and rhythm. S1, S2 NO S3 OR S4 RESPIRATORY: No accessory muscle use. Clear to auscultation. Breath sounds equal bilaterally. GASTROINTESTINAL: Abdomen soft, non-tender, nondistended. Hepatic and splenic margins not palpable. MUSCULOSKELETAL: Extremities without clubbing, cyanosis, or edema. No obvious deformities. NEUROLOGICAL: Awake and alert. No obvious cranial nerve deficits. Motor grossly within normal limits. Five out of 5 muscle strength in the arms and legs. Normal speech. PSYCHIATRIC: Appropriate mood and affect; insight and judgment normal. Hospital Course Patient presented with symptoms of angina. Normal troponins and EKGs. CT pulmonary angiogram negative for PE as above. Cardiac cath showed normal LV function with 60% LAD and negative FFR. Patient was started on Plavix, baby aspirin, beta-orion, statin. Patient was cleared by cardiology for discharge. For problem-based summary from most recent progress note, please see below. //Chest pain with nonsustained ventricular tachycardia Patient does have increased risk factors to include age, hypertension, significant early-onset heart disease in the family Thus far cardiac enzymes are negative. We'll continue to trend cardiac enzymes EKG reviewed by myself which did show normal sinus rhythm, however when in the room patient had symptomatic nonsustained ventricular tachycardia of 7 beats Consult cardiology for recommendations, Dr. Fields recommends transferring to [facility] for cardiac catheterization- TO HAVE CARDIAC CATH 07-06 Patient will be started on aspirin, beta orion, statin, Nitropaste, heparin IV //Hypertension Resume losartan Hold HCTZ //Back pain Pain control //DVT prevention Sequential compression devices Patient will be on heparin IV AWAIT CARDIAC CATH RESULTS--HAD CATH NOT CLEARED FOR DISCHARGE UNTIL TOMORROW Discharge Planning SP CATH- NOT CLEARED BY CARDIOLOGY FOR DC Pt Condition on Discharge: Good Discharge Disposition: Discharge Home Discharge Time: > 30 minutes Discharge Instructions DIET: Follow Instructions for: Heart Healthy Diet Activities you can perform: Regular-No Restrictions Follow up Referrals: Cardiology - 1 Week with Jodie Fields MD PCP Follow-up - 1 Week New Medications: Aspirin (Tgt Aspirin) 81 Mg Chw 81 MG PO DAILY for Blood Clot Prevention, #30 EA Atorvastatin (Atorvastatin) 80 Mg Tab 80 MG PO HS for Cholesterol Management for 30 Days, #30 TAB Clopidogrel (Plavix) 75 Mg Tab 75 MG PO DAILY for Blood Clot Prevention for 30 Days, #30 TAB Isosorbide Mononitrate ER (Isosorbide Mononitrate ER) 30 Mg Theo 30 MG PO DAILY@07 for heart for 30 Days, TAB Losartan (Cozaar) 25 Mg Tab 25 MG PO DAILY for heart for 30 Days, #30 TAB Metoprolol Tartrate (Metoprolol Tartrate) 25 Mg Tab 25 MG PO BID for heart, #60 TAB Continued Medications: Oxycodone-Acetaminophen 10-325 mg (Percocet 10-325 mg) Oxycodone 10/325 Acetaminophen Tab 1 TAB PO Q4HR for PAIN, #30 TAB Tamsulosin (Flomax) 0.4 Mg Cap 0.4 MG PO HS for Manage Prostate Problems, #30 CAP 0 Refills Discontinued Medications: Naproxen (Naproxen) 250 Mg Tab 250 MG PO Q12H, TAB Orphenadrine Citrate (Norflex) 100 Mg Theo 100 MG PO BID, #14 TAB [Bp Pill] () DAILY Ian Harrison MD Jul 07, 2017 10:56
[2017-07-07 10:59] LABS: HEMOGLOBIN A1C 5.9 % (4.3-6.0)
--- NOTE | 2017-07-07 11:15 | EKG ---
Date Performed: 07/06/2017 Time Performed: 17:14:32 PTAGE: 66 years EKG: Sinus rhythm . Normal ECG Since the prior tracing, there has been no significant change PREVIOUS TRACING : 07/05/2017 21.29 DOCTOR: Mak Michel Interpretating Date/Time 07/07/2017 11:11:44
--- NOTE | 2017-07-07 11:16 | EKG ---
Date Performed: 07/07/2017 Time Performed: 05:54:18 PTAGE: 66 years EKG: Sinus rhythm Normal ECG Since the prior tracing, there has been no significant change PREVIOUS TRACING : 07/06/2017 17.14 DOCTOR: Mak Michel Interpretating Date/Time 07/07/2017 11:11:52
== END 2017-07-07 12:27 | disposition home or self-care (01) | DRG 287 ==
LOC: PHED 13:57 → PHEDA 16:26 → OBSVTOIN 18:24 → PH3B 18:54 → NEPFCDU 23:11 → HCIS 07-06 15:38
PROVIDERS: ADMIT Internal Medicine; ATTEND Internal Medicine
PROC: B2111ZZ Fluoroscopy of Multiple Coronary Arteries using Low Osmolar Contrast (ICD-10-PCS; 2017-07-06)
PROC: B2151ZZ Fluoroscopy of Left Heart using Low Osmolar Contrast (ICD-10-PCS; 2017-07-06)
PROC: 4A033BC Measurement of Arterial Pressure, Coronary, Percutaneous Approach (ICD-10-PCS; 2017-07-06)
PROC: 4A023N7 Measurement of Cardiac Sampling and Pressure, Left Heart, Percutaneous Approach (ICD-10-PCS; principal; 2017-07-06 16:15)
DX: I25.118 Atherosclerotic heart disease of native coronary artery with other forms of angina pectoris (principal); I47.2 Ventricular tachycardia; I10 Essential (primary) hypertension; M54.9 Dorsalgia, unspecified; G89.29 Other chronic pain; Z88.0 Allergy status to penicillin; Z82.49 Family history of ischemic heart disease and other diseases of the circulatory system; Z87.891 Personal history of nicotine dependence
CPT/HCPCS: 71045; 71275; 80053; 80061; 82550; 82552; 83036; 83735; 84100; 84439; 84443; 84484; 85002; 85025; 85379; 85610; 85730; 93005; 93458; 93571; 99152; 99153; C1760; C1769; C1893; G0269; J0153; J1644; J2250; J3010; J7030; Q9967